=== PATIENT | male | born 1975 | race Caucasian/White ===

== ENCOUNTER 2021-06-14 11:04 | Emergency (ER) | payer OTHER ==
[~2021-06-14] VITALS: Ht 200.7 cm; Wt 90.7 kg
--- OUTSIDE RECORDS SUMMARY | 2021-06-14 11:12 | XMS ---
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 [place] has no Care Guidelines for this patient. [place] VISIT COUNT (12 MO.) 1 [facility] Zarate TOTAL 1 NOTE: Visits indicate total known visits. ED/C VISIT TRACKING (12 MO.) 06/14/2021 11:04 [facility] [place] TYPE: Emergency COMPLAINT: - L HAND INJURY INPATIENT VISIT TRACKING (12 MO.) No inpatient visits to display in this time frame [email or web address]
== END 2021-06-14 19:30 | disposition home or self-care (01) ==
LOC: ED 11:04
DX: S61.412A Laceration without foreign body of left hand, initial encounter (principal); Z23 Encounter for immunization; W22.8XXA Striking against or struck by other objects, initial encounter; Z88.5 Allergy status to narcotic agent
CPT/HCPCS: 12004; 90471; 90715; 99282-25

== ENCOUNTER 2023-10-02 20:30 | Emergency (ER) | payer SELFPAY ==
[~2023-10-02] VITALS: Ht 200.7 cm; Wt 85.3 kg
[~2023-10-02 20:30] MED LIST: PREDNISONE20 MG PO
[2023-10-02] MEDS ORDERED: KETOROLAC TROMETHAMINE 60 MG/2 ML VIAL IM ONE (21:15)
[2023-10-02] MEDS ORDERED: ONDANSETRON ODT8 MG PO (22:06)
[2023-10-02] MEDS ORDERED: HYDROCODON-ACE1 EA10 PO (22:06)
[2023-10-02] MEDS ORDERED: ONDANSETRON 4 MG HOME.PACK SL ONE (22:15)
[2023-10-02] MEDS ORDERED: HYDROCODONE BIT/ACETAMINOPHEN 5/325 MG 1 TAB HOME.PACK PO ONE (22:15)
[2023-10-02 22:18] VITALS: BP 145/78
== END 2023-10-02 22:19 | disposition home or self-care (01) ==
LOC: ED 20:30
DX: M89.9 Disorder of bone, unspecified (principal); Z88.5 Allergy status to narcotic agent
CPT/HCPCS: 73700; A9270

== ENCOUNTER 2023-11-28 15:19 | Emergency (ER) | payer OTHER ==
[~2023-11-28] VITALS: Ht 200.7 cm; Wt 84.2 kg
[~2023-11-28 15:19] MED LIST changes: +HYDROCODON-ACE1 EA10 PO; +ONDANSETRON ODT8 MG PO
--- OUTSIDE RECORDS SUMMARY | 2023-11-28 15:25 | XMS ---
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 Catracho has no Care Guidelines for this patient. [place] [facility] ([address] [facility] NOTE: Visits indicate total known visits. ED/C VISIT TRACKING (12 MO.) [facility]2023 15[facility] COMPLAINT: - FALL 11/20/2023 17:20 [facility] [place] TYPE: Emergency COMPLAINT: - SKIN PROBLEM 10/02/2023 20:31 [facility] [place] TYPE: Emergency COMPLAINT: - RT HIP PAIN DIAGNOSES: - Allergy status to narcotic agent - Disorder of bone, unspecified - Pain in right hip 07/26/2023 08:49 [facility] [place] TYPE: Emergency COMPLAINT: - R HIP PAIN DIAGNOSES: - Allergy status to narcotic agent - Pain in right hip INPATIENT VISIT TRACKING (12 MO.) No inpatient visits to display in this time frame [email or web address]
[2023-11-28 16:37] VITALS: BP 156/92
== END 2023-11-28 16:37 | disposition home or self-care (01) ==
LOC: ED 15:19
DX: M25.551 Pain in right hip (principal); W01.0XXA Fall on same level from slipping, tripping and stumbling without subsequent striking against object, initial encounter; Z88.5 Allergy status to narcotic agent
CPT/HCPCS: 72192; 99283-25

== ENCOUNTER 2023-12-04 09:34 | Emergency (ER) | payer OTHER ==
[~2023-12-04] VITALS: Ht 200.7 cm; Wt 84.6 kg
--- OUTSIDE RECORDS SUMMARY | 2023-12-04 09:40 | XMS ---
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 Cat[place]acho has no Care Guidelines for this patient. [place] [facility] (12 MO.) [facility] T[facility] 5 NOTE: Visits indicate total known visits. ED/C VISIT TRACKING (12 MO.) 12/04/2023 09:[facility] [place] TYPE: Emergency COMPLAINT: - BLOOD IN URINE 11/28/2023 15:19 [facility] [place] TYPE: Emergency COMPLAINT: - FALL DIAGNOSES: - Allergy status to narcotic agent - Fall on same level from slipping, tripping and stumbling without subsequent striking against object, initial encounter - Pain in right hip 11/20/2023 17:20 [facility] [place] TYPE: Emergency [...] visits to display in this time frame [email or web address]
[2023-12-04] MEDS ORDERED: ADVIL200 M1 PO (10:11)
[2023-12-04] MEDS ORDERED: TYLENOL325 M1 PO (10:11)
[2023-12-04] MEDS ORDERED: ondansetron HCL 4 MG/2 ML VIAL IV ONE (10:15)
[2023-12-04] MEDS ORDERED: SODIUM CHLORIDE 0.9% 1,000 ML IV ONE (10:15)
[2023-12-04 10:26] LABS: EOSINOPHILS 2.3 % (0-6); HEMATOCRIT 43.4 % (35.0-50.0); HEMOGLOBIN 14.4 g/dL (12.0-18.0); LYMPHOCYTES 22.6 % (24-44); MCHC 33.2 g/dl (30-36); MCV 87.2 fl (81-99); NEUTROPHILS 68.1 % (39-80); PLATELET COUNT 171 K/uL (140-440); RBC 4.98 M/ul (4.3-5.7); RDW 14.3 (10.5-15.0)
[2023-12-04 10:31] LABS: BILIRUBIN, URINE NEGATIVE (negative); BLOOD/HGB, URINE LARGE (Negative); KETONE, URINE NEGATIVE (Negative); LEUK ESTERASE, URINE NEGATIVE (negative); NITRITE, URINE NEGATIVE (negative); PH, URINE 5.5 (5-7)
[2023-12-04 10:37] LABS: BACTERIA, URINE RARE /hpf (negative); CASTS, URINE NONE SEEN \\lpf; COLLECTION TYPE, URINE CLEAN CATCH; CRYSTALS, URINE NONE SEEN (0-1+); EPITHELIAL CELLS, URINE 0 /lpf (0-1+); RED BLOOD CELLS, URINE >50 /hpf (0-5); REFLEX CULTURE, URINE No (No)
[2023-12-04 10:41] LABS: ALBUMIN 4.2 g/dL (3.4-5.0); ALBUMIN/GLOBULIN RATIO 1.11 (1.1-2.4); ANION GAP 15.8 (7-21); BILIRUBIN, TOTAL 0.5 ng/dL (0.2-1.0); BUN/CREATININE RATIO 12.26 (6.0-28.6); CALCIUM 9.7 mg/dL (8.5-10.1); CREATININE, SERUM 1.06 mg/dL (0.70-1.30); POTASSIUM 4.8 mmol/L (3.5-5.1)
[2023-12-04 12:10] VITALS: BP 158/100
== END 2023-12-04 12:14 | disposition home or self-care (01) ==
LOC: ED 09:34
PROVIDERS: Emergency Medicine
DX: R31.9 Hematuria, unspecified (principal); D49.4 Neoplasm of unspecified behavior of bladder; R30.0 Dysuria; Z88.5 Allergy status to narcotic agent
CPT/HCPCS: 36415; 74177; 80053; 81001; 83690; 85025; 99284-25; J2405; J7030; Q9967

== ENCOUNTER 2024-03-08 17:08 | Emergency (ER) | payer OTHER ==
[~2024-03-08] VITALS: Ht 200.7 cm; Wt 84.4 kg
[~2024-03-08 17:08] MED LIST changes: +ADVIL200 M1 PO; +TYLENOL325 M1 PO
[2024-03-08 18:43] LABS: BILIRUBIN, URINE NEGATIVE (negative); BLOOD/HGB, URINE LARGE (Negative); KETONE, URINE NEGATIVE (Negative); LEUK ESTERASE, URINE NEGATIVE (negative); NITRITE, URINE NEGATIVE (negative)
[2024-03-08 18:50] LABS: BACTERIA, URINE NONE SEEN /hpf (negative); CASTS, URINE NONE SEEN \\lpf; CRYSTALS, URINE NONE SEEN (0-1+); EPITHELIAL CELLS, URINE NONE SEEN /lpf (0-1+); RED BLOOD CELLS, URINE 41-50 /hpf (0-5)
[2024-03-08 18:51] LABS: COLLECTION TYPE, URINE CLEAN CATCH; REFLEX CULTURE, URINE No (No)
[2024-03-08 19:34] LABS: BASOPHILS 0.7 % (0-2); EOSINOPHILS 4.7 % (0-6); HEMATOCRIT 35.1 % (35.0-50.0); HEMOGLOBIN 11.8 g/dL (12.0-18.0); MCH 29.4 (27-36); MCHC 33.6 g/dl (30-36); MCV 87.4 fl (81-99); MONOCYTES 11.5 % (0-12); NEUTROPHILS 55.1 % (39-80); PLATELET COUNT 150 K/uL (140-440); RBC 4.01 M/ul (4.3-5.7); RDW 13.8 (10.5-15.0)
[2024-03-08 19:42] LABS: INR 1.01 (0.80-1.30); PARTIAL THROMBOPLASTIN TIME 27.5 Sec (22.9-41.3); PROTIME 12.6 Sec (11.2-14.2)
[2024-03-08 19:46] LABS: ALBUMIN 3.7 g/dL (3.4-5.0); ALBUMIN/GLOBULIN RATIO 1.09 (1.1-2.4); ANION GAP 11.6 (7-21); BILIRUBIN, TOTAL 0.4 ng/dL (0.2-1.0); BUN/CREATININE RATIO 12.38 (6.0-28.6); CALCIUM 8.9 mg/dL (8.5-10.1); CREATININE, SERUM 1.05 mg/dL (0.70-1.30); POTASSIUM 3.6 mmol/L (3.5-5.1); PROTEIN, TOTAL 7.1 g/dL (6.4-8.2)
[2024-03-08 20:24] VITALS: BP 140/93
== END 2024-03-08 20:24 | disposition home or self-care (01) ==
LOC: ED 17:08
PROVIDERS: Emergency Medicine; Internal Medicine
DX: R31.9 Hematuria, unspecified (principal); D49.4 Neoplasm of unspecified behavior of bladder; Z88.5 Allergy status to narcotic agent
CPT/HCPCS: 36415; 80053; 81001; 85025; 85610; 85730; 99283

== ENCOUNTER 2024-04-26 18:03 | Emergency (ER) | payer OTHER ==
[~2024-04-26] VITALS: Ht 200.7 cm; Wt 88.9 kg
[2024-04-26 19:38] LABS: EOSINOPHILS 4.9 % (0-6); HEMATOCRIT 39.6 % (35.0-50.0); HEMOGLOBIN 13.3 g/dL (12.0-18.0); LYMPHOCYTES 25.4 % (24-44); MCH 29.1 (27-36); MCHC 33.5 g/dl (30-36); MCV 86.9 fl (81-99); MONOCYTES 7.2 % (0-12); NEUTROPHILS 60.5 % (39-80); PLATELET COUNT 154 K/uL (140-440); RBC 4.56 M/ul (4.3-5.7); RDW 14.8 (10.5-15.0)
[2024-04-26 19:52] LABS: ALBUMIN 3.8 g/dL (3.4-5.0); ALBUMIN/GLOBULIN RATIO 1.15 (1.1-2.4); ANION GAP 10.8 (7-21); BILIRUBIN, TOTAL 0.3 mg/dL (0.2-1.0); BUN/CREATININE RATIO 11.5 (6.0-28.6); CALCIUM 8.9 mg/dL (8.5-10.1); CREATININE, SERUM 1.13 mg/dL (0.70-1.30); POTASSIUM 3.8 mmol/L (3.5-5.1); PROTEIN, TOTAL 7.1 g/dL (6.4-8.2)
[2024-04-26 19:54] LABS: INR 0.92 (0.80-1.30); PROTIME 12.2 Sec (11.2-14.2)
[2024-04-26] MEDS ORDERED: PANTOPRAZOLE SODIUM 40 MG TABEC PO ONE (21:30)
[2024-04-26 21:50] VITALS: BP 136/87
== END 2024-04-26 21:48 | disposition home or self-care (01) ==
LOC: ED 18:03
PROVIDERS: Emergency Medicine
DX: K62.5 Hemorrhage of anus and rectum (principal); C67.9 Malignant neoplasm of bladder, unspecified; Z88.5 Allergy status to narcotic agent; Z79.890 Hormone replacement therapy; Z79.899 Other long term (current) drug therapy
CPT/HCPCS: 36415; 80053; 85025; 85610; 99283; A9270

== ENCOUNTER 2024-10-18 21:08 | Emergency (ER) | payer OTHER ==
[~2024-10-18] VITALS: Ht 200.7 cm; Wt 94.3 kg
[~2024-10-18 21:08] MED LIST changes: +LEVOTHYROXINE75 MCG PO; +PROCHLORPERAZIN10 MG PO; +PROTONIX40 MG PO
[2024-10-18 22:56] LABS: BASOPHILS 0.1 % (0.2-1.2); EOSINOPHILS 0.1 % (0.8-7.0); LYMPHOCYTES 5.7 % (21.8-53.1); MCH 29.2 PG (25.7-32.2); MCHC 33.4 g/dL (32.3-36.5); MCV 87.2 fL (79.0-92.2); MONOCYTES 4.4 % (5.3-12.2); NEUTROPHILS 89.2 % (34.0-67.9); RBC 4.39 M/uL (4.63-6.08)
[2024-10-18] MEDS ORDERED: TRANEXAMIC ACID IN NACL,ISO-OS 1,000 MG/100 ML PIGGYBACK IV SCH (23:00)
[2024-10-18 23:13] LABS: INR 0.99 (0.80-1.30); PROTIME 12.7 Sec (11.2-14.2)
[2024-10-18] MEDS ORDERED: LIDOCAINE 2% VISCOUS 6 ML SYR MM ONE (23:15)
[2024-10-18 23:19] LABS: ALT (SGPT) 20.0 U/L (14-59); AST (SGOT) 12.0 U/L (15-37); GLOMERULAR FILTRATION RATE,EST 85.0 mL/min (>60); PROTEIN, TOTAL 6.8 g/dL (6.4-8.2); UREA NITROGEN 28.0 mg/dL (7-18)
[2024-10-18] MEDS ORDERED: LIDOCAINE 2% VISCOUS 6 ML SYR TOP ONE (23:45)
[2024-10-19 03:57] VITALS: BP 138/92
[2024-10-20] MEDS ORDERED: SULFAMETHOXAZO1 EAC1 PO (07:40)
[2024-10-20] MEDS ORDERED: OXYBUTYNIN CHLOR5 MG PO (07:40)
[2024-10-20] MEDS ORDERED: PREDNISONE20 MG PO (07:41)
== END 2024-10-19 03:30 | disposition home or self-care (01) ==
LOC: ED 21:08
PROVIDERS: Internal Medicine
DX: R31.9 Hematuria, unspecified (principal); T83.031A Leakage of indwelling urethral catheter, initial encounter; Y84.6 Urinary catheterization as the cause of abnormal reaction of the patient, or of later complication, without mention of misadventure at the time of the procedure; Z98.890 Other specified postprocedural states; Z88.5 Allergy status to narcotic agent; Z79.890 Hormone replacement therapy; Z79.899 Other long term (current) drug therapy
CPT/HCPCS: 36415; 51700; 80053; 85025; 85610; 85730; 96365; 99283-25; A4311